=== PATIENT | female | born 1975 | race African-American/Black ===

== ENCOUNTER 2023-12-06 08:09 | Emergency (ER) | payer BC ==
[~2023-12-06] VITALS: Ht 167.6 cm; Wt 81.6 kg
[2023-12-06 08:15] VITALS: BP_SYST 152; PULSE 85; RESP 18; TEMP 98.3; O2SAT 100
[2023-12-06] MEDS ORDERED: GUAI100S14 PO (09:44)
[2023-12-06] MEDS ORDERED: PSEU120T57 PO (09:44)
[2023-12-06 09:50] VITALS: BP_SYST 152; PULSE 85; RESP 18; TEMP 98.3; O2SAT 100
== END 2023-12-06 09:50 | disposition home or self-care (01) ==
LOC: SED 08:09
DX: J06.9 Acute upper respiratory infection, unspecified (principal); R09.81 Nasal congestion; Z79.899 Other long term (current) drug therapy; Z79.2 Long term (current) use of antibiotics
CPT/HCPCS: 71045; 99283